=== PATIENT | female | born 1990 | race Caucasian/White ===

== ENCOUNTER 2017-03-11 00:29 | Emergency (ER) | payer OTHER ==
[2017-03-11 00:31] VITALS: BP 134/82
== END 2017-03-11 01:46 | disposition home or self-care (01) ==
LOC: ED 00:29
DX: R10.13 Epigastric pain (principal); R11.2 Nausea with vomiting, unspecified; E11.9 Type 2 diabetes mellitus without complications; E03.9 Hypothyroidism, unspecified; Z90.49 Acquired absence of other specified parts of digestive tract